=== PATIENT | male | born 1955 | race African-American/Black ===

== ENCOUNTER → 2020-12-23 14:14 | Outpatient (BNVA) | payer OTHER, SELFPAY | PROVIDERS: PCP Hospitalist; Visit Provider Urology ==

== ENCOUNTER → 2021-06-30 13:31 | Outpatient (BNVA) | payer OTHER, SELFPAY | PROVIDERS: PCP Hospitalist; Visit Provider Urology ==

== ENCOUNTER → 2021-12-28 13:43 | Outpatient (BNVA) | payer MEDICARE, MEDICAID, SELFPAY | PROVIDERS: PCP Hospitalist; Visit Provider Urology | DX: N52.9 Male erectile dysfunction, unspecified (principal); C61 Malignant neoplasm of prostate; N40.0 Benign prostatic hyperplasia without lower urinary tract symptoms; Z88.0 Allergy status to penicillin | CPT/HCPCS: 51798; 99212 ==

== ENCOUNTER → 2022-07-05 10:57 | Outpatient (BNVA) | payer MEDICARE, MEDICAID, SELFPAY | PROVIDERS: PCP Student in an Organized Health Care Education/Training Program; Visit Provider Urology | DX: C61 Malignant neoplasm of prostate (principal); N52.9 Male erectile dysfunction, unspecified | CPT/HCPCS: Q3014 ==

== ENCOUNTER 2023-07-05 14:56 | Outpatient (AMB) | payer MEDICARE, MEDICAID, SELFPAY ==
--- NOTE | 2023-07-05 14:57 | MHC.OFFVIS ---
Intake Intake Visit Reasons: 1Y PSA(set) Intake Note: Patient is present for Follow Up Urology Med: Sildenafil Antibiotic Allergy: Penicillin Blood Thinner: Aspirin [facility]: [facility] Allergies keflex Allergy (Unknown, Uncoded 07/05/23 15:01) anaphylaxis penicillin Allergy (Unknown, Uncoded 07/05/23 15:01) Unknown HPI HPI Comments History of Present Illness Details Dasha MAGUIRE is a very pleasant male. He is a patient of Dr Arreola. He is seen for the following urologic conditions - prostate cancer - erectile dysfunction PSA 06/14 <0.1 Stays responsive to Viagra Continue with 6 month surveillance Negative for germline mutation Prostate cancer: 2017 grade group 3 Omar 3 + 4 , brachytherapy PSA low ED response to low-dose Viagra Prostate cancer was diagnosed 05/08 Dr Pang. Diagnosis was reached by needle biopsy, for elevated PSA, PSA at diagnosis 10, , size at TRUS 35cc. The Omar grade is At biopsy, left mid gland, left base, right mid gland 2/12 cores , 3+3 = 6 - up to 90%, 2/12 cores, 3+4 = 7 20% TNM Classification of Malignant Tumours (TNM) T1c. The D'Luis Miguel (NCCN) risk category is Intermediate Risk (PSA 10-20, Gl 7, T2) - low intermediate, no PNI, Gl 3+4 - AUA score 6 - MATIAS 20. Initial therapy included 07/09 , Primary treatment, Brachytherapy, Dr Rucker. Recent labs included 12/10 < 0.1, 05/09 0.4 12/11 0.3, 05/10 0.2, 12/12 < 0.1, 06/11 < 0.1, 12/13 < 0.1, 06/12 <0.1, 12/14 <0.1, 06/13 <0.1 Germline genetics - no defined abnormalities 03/13 Therapeutic plan: Continue with surveillance Erectile dysfunction Responsive to on demand Viagra Secondary to brachytherapy [facility] Medical History Hypertension Diabetes mellitus, type II Asthma Glucosuria Feeling of incomplete bladder emptying Benign prostatic hyperplasia with lower urinary tract symptoms Weak urinary stream Erectile dysfunction following interstitial seed therapy Prostate cancer Elevated PSA Surgical History History of surgery Family History Brother Prostate CA Brother Prostate CA Mother Breast CA Sister Lung cancer Other Family history of breast cancer in mother Review of Systems Const Denies chills and Denies fever(s) Card Reports no additional complaints and Denies syncope Resp Denies cough GI Denies abdominal pain and Denies heartburn Reports as per HPI and Denies change in libido Neuro Denies syncope Psych Denies change in libido Endo Denies change in libido Physical Exam Const General: cooperative, healthy appearing, comfortable and no acute distress Orientation/consciousness: patient oriented x3 HEENT Face and sinus: Yes normal facial exam Mouth: moist mucous membranes Neck Neck: Yes normal visual inspection, Yes full ROM and Yes trachea midline Chest Chest palpation & inspection: normal inspection of the chest Resp Effort & Inspection: normal respiratory effort, able to speak in complete sentences and no respiratory distress GI Inspection: Yes normal to inspection Back/Spine/Pelvis Cervical Spine: normal cervical lordosis Thoracic/Lumbar Spine: thoracic and lumbar spine normal to inspection Skin General skin exam: no rashes or lesions noted Neuro General: patient oriented x3, gait normal, tone normal and moves all extremities Extrem General: Yes normal to inspection and Yes capillary refill normal Assessment & Plan Assessment & Plan (1) Prostate cancer: Comment: 2019 grade group 2 brachytherapy Code(s): C61 - Malignant neoplasm of prostate Plan Continue 6 month follow-up Patient Instructions: Imaging studies, laboratory and physical exam results were discussed and reviewed in detail. No major barriers to patient understanding were identified. An opportunity to ask questions regarding the treatment plan was provided. All questions were answered. The patient expressed understanding and agreement with the above treatment plan. The patient is aware they should contact our office by phone for worsening of their current condition or the appearance of new urologic symptoms. Compliance is encouraged with any medications and followup testing that is ordered. It is a privilege to participate in the urologic care of your patient. If you have any questions or concerns regarding treatment for the above conditions, or other urologic issues, please do not hesitate to contact me. The office telephone contact is [phone]. This note is constructed using voice recognition software. While every effort has been made to ensure accuracy lacquer sizer errors may have been included. Yours sincerely, Dr Ronen Pang MD, [facility] - Urology Providers of Expert, Compassionate Care for the Genitourinary System Coding Level of Care Code Est Pt Level 3 (13614) Diagnoses Prostate cancer C61
== END 2023-07-05 15:16 | disposition home or self-care (01) ==
PROVIDERS: PCP Student in an Organized Health Care Education/Training Program; Visit Provider Urology
DX: C61 Malignant neoplasm of prostate (principal)
CPT/HCPCS: 99213

== ENCOUNTER → 2023-07-05 14:56 | Outpatient (BNVA) | payer MEDICARE, MEDICAID, SELFPAY | PROVIDERS: Visit Provider Urology | DX: C61 Malignant neoplasm of prostate (principal) | CPT/HCPCS: 99212 ==

== ENCOUNTER 2024-01-03 11:33 | Outpatient (AMB) | payer MEDICARE, MEDICAID, SELFPAY ==
--- NOTE | 2024-01-03 11:34 | A.OFFVIS_ITS ---
Intake Intake Visit Reasons: 6m/PSA(set) confirmed Intake Note: Patient presents today for a telehealth follow-up on PSA Meds- Sildenafil, Allergies to Antibiotic- Penicillin Blood Thinner- Aspirin Aging Box Hand Required: No Allergies keflex Allergy (Unknown, Uncoded 01/03/24 11:35) anaphylaxis penicillin Allergy (Unknown, Uncoded 01/03/24 11:35) Unknown Medication List - Last Reconciled 01/03/24 by Ronen Pang MD albuterol sulfate 90 mcg/actuation (ProAir HFA) 1 puff PO Q6H PRN aspirin 81 mg PO DAILY blood sugar diagnostic (FreeStyle Lite Strips) As directed diltiazem HCl 240 mg PO DAILY dulaglutide (Trulicity) mg subcut empagliflozin (Jardiance) 25 mg PO DAILY hydrochlorothiazide 25 mg PO DAILY ibuprofen 600 mg PO Q6H PRN lancets (FreeStyle Lancets) As directed lidocaine 5% 1 patch topical DAILY PRN lisinopril 40 mg PO DAILY metformin 1,000 mg PO BID rosuvastatin 20 mg PO DAILY sildenafil 100 mg PO .PRN PRN 30 days HPI HPI Comments History of Present Illness Details Dasha MAGUIRE is a very pleasant male. He is a patient of Dr Arreola. He is seen for the following urologic conditions - prostate cancer - erectile dysfunction PSA 06/14 <0.1, 12/16 <0.1 Stays responsive to Viagra May move to 12 month surveillance Negative for germline mutation Prostate cancer: 2017 grade group 3 Omar 3 + 4 , brachytherapy PSA low ED response to low-dose Viagra Prostate cancer was diagnosed 05/08 Dr Pang. Diagnosis was reached by needle biopsy, for elevated PSA, PSA at diagnosis 10, , size at TRUS 35cc. The Omar grade is At biopsy, left mid gland, left base, right mid gland 2/12 cores , 3+3 = 6 - up to 90%, 2/12 cores, 3+4 = 7 20% TNM Classification of Malignant Tumours (TNM) T1c. The D'Luis Miguel (NCCN) risk category is Intermediate Risk (PSA 10-20, Gl 7, T2) - low intermediate, no PNI, Gl 3+4 - AUA score 6 - MATIAS 20. Initial therapy included 07/09 , Primary treatment, Brachytherapy, Dr Rucker. Recent labs included 12/10 < 0.1, 05/09 0.4, 12/11 0.3, 05/10 0.2, 12/12 < 0.1, 06/11 < 0.1, 12/13 < 0.1, 06/12 <0.1, 12/14 <0.1, 06/13 <0.1 Germline genetics - no defined abnormalities 03/13 Therapeutic plan: Continue with surveillance Erectile dysfunction Responsive to on demand Viagra Secondary to brachytherapy [facility] Medical History Hypertension Diabetes mellitus, type II Asthma Glucosuria Feeling of incomplete bladder emptying Benign prostatic hyperplasia with lower urinary tract symptoms Weak urinary stream Erectile dysfunction following interstitial seed therapy Prostate cancer Elevated PSA Surgical History History of surgery Family History Brother Prostate CA Brother Prostate CA Mother Breast CA Sister Lung cancer Other Family history of breast cancer in mother Review of Systems Const All systems reviewed & are unremarkable except as noted in HPI and below Reports no additional complaints Resp Reports no additional complaints GI Reports no additional complaints Reports as per HPI Musc Reports no additional complaints Physical Exam Telemedicine evaluation Appropriate responses Regular breathing rate and rhythm HEENT Head: Yes normal to inspection Ears: hearing grossly normal bilaterally Eyes General: appearance normal, both eyes and all related structures Neck Neck: Yes normal visual inspection Chest Chest palpation & inspection: normal inspection of the chest Resp Effort & Inspection: normal respiratory effort and able to speak in complete sentences Assessment & Plan Assessment & Plan (1) Prostate cancer: Comment: 2019 grade group 2 brachytherapy Code(s): C61 - Malignant neoplasm of prostate (2) Erectile dysfunction: Code(s): N52.9 - Male erectile dysfunction, unspecified Plan Twelve month follow-up PSA Refill sildenafil Orders: Orders Prostate Specific Antigen 364 Days C61 - Malignant neoplasm of prostate Medications: Refilled sildenafil 60 minutes before intended activity- not to exceed 1 tab daily 100 mg PO .PRN 30 days PRN 30 tabs 3RF sexual activity N52.9 - Male erectile dysfunction, unspecified Patient Instructions: Imaging studies, laboratory and physical exam results were discussed and reviewed in detail. No major barriers to patient understanding were identified. An opportunity to ask questions regarding the treatment plan was provided. All questions were answered. The patient expressed understanding and agreement with the above treatment plan. The patient is aware they should contact our office by phone for worsening of their current condition or the appearance of new urologic symptoms. Compliance is encouraged with any medications and followup testing that is ordered. It is a privilege to participate in the urologic care of your patient. If you have any questions or concerns regarding treatment for the above conditions, or other urologic issues, please do not hesitate to contact me. The office telephone contact is [phone]. This note is constructed using voice recognition software. While every effort has been made to ensure accuracy rigging man errors may have been included. Yours sincerely, Dr Ronen Pang MD, [facility] - Urology Providers of Expert, Compassionate Care for the Genitourinary System Telehealth Telehealth Location of provider rendering services: practice address Location of patient: address on file Patient Identification confirmed using: Name, : Yes Telehealth method: video Patient verbally consented to treatment: Yes Patient verbally consented to billing insurance company: Yes Patient informed of any privacy concerns related to visit: Yes Coding Level of Care Code Est Pt Level 3 (26276) Diagnoses Prostate cancer C61 Erectile dysfunction N52.9
== END 2024-01-03 13:36 | disposition home or self-care (01) ==
LOC: HO.HUSH 11:33
PROVIDERS: PCP Student in an Organized Health Care Education/Training Program; Visit Provider Urology
DX: C61 Malignant neoplasm of prostate (principal); N52.9 Male erectile dysfunction, unspecified
CPT/HCPCS: 99213

== ENCOUNTER → 2024-01-03 11:33 | Outpatient (BNVA) | payer MEDICARE, MEDICAID, SELFPAY | PROVIDERS: PCP Student in an Organized Health Care Education/Training Program; Visit Provider Urology | DX: C61 Malignant neoplasm of prostate (principal); N52.9 Male erectile dysfunction, unspecified; Z79.899 Other long term (current) drug therapy | CPT/HCPCS: 99212 ==

== ENCOUNTER 2025-01-15 13:03 | Outpatient (AMB) | payer MEDICARE, MEDICAID, SELFPAY ==
--- NOTE | 2025-01-15 13:20 | A.OFFVIS_ITS ---
Intake Visit Reasons: 1yr/PSA Intake Note: Patient presents today for 1Y follow-up on PSA Meds- Sildenafil, Allergies to Antibiotic- Penicillin Blood Thinner- Aspirin Manager Community Development Required: No Allergies keflex Allergy (Unknown, Uncoded 01/15/25 13:22) anaphylaxis penicillin Allergy (Unknown, Uncoded 01/15/25 13:22) Unknown HPI Comments Details: Dasha MAGUIRE is a very pleasant male. He is a patient of Dr Arreola. He is seen for the following urologic conditions - prostate cancer - erectile dysfunction PSA 06/14 <0.1, 12/16 <0.1, 01/14 <0.1 Stays responsive to Viagra May move to 12 month surveillance Very happy for PSA control Negative for germline mutation Prostate cancer: 2017 grade group 3 Omar 3 + 4 , brachytherapy PSA low ED response to low-dose Viagra Prostate cancer was diagnosed 05/08 Dr Pang. Diagnosis was reached by needle biopsy, for elevated PSA, PSA at diagnosis 10, , size at TRUS 35cc. The Omar grade is At biopsy, left mid gland, left base, right mid gland 2/12 cores , 3+3 = 6 - up to 90%, 2/12 cores, 3+4 = 7 20% TNM Classification of Malignant Tumours (TNM) T1c. The D'Luis Miguel (NCCN) risk category is Intermediate Risk (PSA 10-20, Gl 7, T2) - low intermediate, no PNI, Gl 3+4 - AUA score 6 - MATIAS 20. Initial therapy included 07/09 , Primary treatment, Brachytherapy, Dr Rucker. Recent labs included 12/10 < 0.1, 05/09 0.4, 12/11 0.3, 05/10 0.2, 12/12 < 0.1, 06/11 < 0.1, 12/13 < 0.1, 06/12 <0.1, 12/14 <0.1, 06/13 <0.1 Germline genetics - no defined abnormalities 03/13 Therapeutic plan: Continue with surveillance Erectile dysfunction Responsive to on demand Viagra Secondary to brachytherapy PFSH Medical History Hypertension Diabetes mellitus, type II Asthma Glucosuria Feeling of incomplete bladder emptying Benign prostatic hyperplasia with lower urinary tract symptoms Weak urinary stream Erectile dysfunction following interstitial seed therapy Prostate cancer Elevated PSA Surgical History History of surgery Family History Brother Prostate CA Brother Prostate CA Mother Breast CA Sister Lung cancer Other Family history of breast cancer in mother Review of Systems Const Denies chills and Denies fever(s) Card Reports no additional complaints and Denies syncope Resp Denies cough GI Denies abdominal pain and Denies heartburn Reports as per HPI and Denies change in libido Neuro Denies syncope Psych Denies change in libido Endo Denies change in libido Physical Exam Const General: cooperative, healthy appearing, comfortable and no acute distress Orientation/consciousness: patient oriented x3 HEENT Face and sinus: Yes normal facial exam Mouth: moist mucous membranes Neck Neck: Yes normal visual inspection, Yes full ROM and Yes trachea midline Chest Chest palpation & inspection: normal inspection of the chest Resp Effort & Inspection: normal respiratory effort, able to speak in complete sentences and no respiratory distress GI Inspection: Yes normal to inspection Back/Spine/Pelvis Cervical Spine: normal cervical lordosis Thoracic/Lumbar Spine: thoracic and lumbar spine normal to inspection Skin General skin exam: no rashes or lesions noted Neuro General: patient oriented x3, gait normal, tone normal and moves all extremities Extrem General: Yes normal to inspection and Yes capillary refill normal Assessment & Plan Assessment & Plan (1) Prostate cancer: Comment: 2019 grade group 2 brachytherapy Code(s): C61 - Malignant neoplasm of prostate Category: Medical (2) Erectile dysfunction: Code(s): N52.9 - Male erectile dysfunction, unspecified Category: Medical Plan Twelve month follow-up PSA Orders: Orders Prostate Specific Antigen 364 Days C61 - Malignant neoplasm of prostate Patient Instructions: This note is constructed using voice recognition software. While every effort has been made to ensure accuracy bakery manager errors may have been included. Imaging studies, laboratory and physical exam results were discussed and reviewed in detail. No major barriers to patient understanding were identified. An opportunity to ask questions regarding the treatment plan was provided. All questions were answered. The patient expressed understanding and agreement with the above treatment plan. The patient is aware they should contact our office by phone for worsening of their current condition or the appearance of new urologic symptoms. Compliance is encouraged with any medications and followup testing that is ordered. It is a privilege to participate in the urologic care of your patient. If you have any questions or concerns regarding treatment for the above conditions, or other urologic issues, please do not hesitate to contact me. The office telephone contact is [phone]. Sincerely, Dr Ronen Pang MD, [facility] - Urology Compassionate Specialist Care for the Genitourinary System Coding Level of Care Code Est Pt Level 3 (15689) Diagnoses Prostate cancer C61 Erectile dysfunction N52.9
== END 2025-01-15 14:13 | disposition home or self-care (01) ==
LOC: HO.HUSH 13:03
PROVIDERS: PCP Student in an Organized Health Care Education/Training Program; Visit Provider Urology
DX: C61 Malignant neoplasm of prostate (principal); N52.9 Male erectile dysfunction, unspecified
CPT/HCPCS: 99213

== ENCOUNTER → 2025-01-15 13:03 | Outpatient (BNVA) | payer MEDICARE, MEDICAID, SELFPAY | PROVIDERS: PCP Student in an Organized Health Care Education/Training Program; Visit Provider Urology | DX: C61 Malignant neoplasm of prostate (principal); N52.9 Male erectile dysfunction, unspecified | CPT/HCPCS: 99212 ==